=== PATIENT | female | born 1935 ===

== ENCOUNTER 2019-06-15 20:30 | Inpatient (IN) | payer MEDICARE, MEDICAID ==
[~2019-06-15] VITALS: Ht 167.6 cm; Wt 137.0 kg
[2019-06-15 11:50] VITALS: BP 165/100
[~2019-06-15 20:30] MED LIST: ASPI81TA47 PO; CELE-193 PO; CHOL100062 PO; DULR RC; FOLI-43 PO; FURO-149 PO; HYDR200T80 PO; MAGN800O PO; METH2.5T17 PO; MULT-785 PO; NORCO10T PO; OMEP40CA13 PO; ONDA4TAB9 SL; POTA20TA84 PO; PREG75CA30 PO; SENN187T PO; VITA400C21 PO; VITC500T PO
--- NOTE | 2019-06-15 20:46 | NUR ---
MD informed of orders, Dr Bethea on her way to see the patient.
--- NOTE | 2019-06-15 20:47 | NUR ---
Pt keeps her eyes closed and moans. She is very miserable. Usually she is very talkative.
[2019-06-15 20:57] LABS: BASOPHILS # (AUTO) 0.1 X10'3 (0-0.2); BASOPHILS % (AUTO) 0.4 % (0-1); EOSINOPHILS % (AUTO) 0.1 % (0-6); HEMATOCRIT 41.8 % (35.0-45.0); HEMOGLOBIN 13.2 g/dl (12.0-16.0); LYMPHOCYTES # (AUTO) 0.7 X10'3 (1.1-4.8); LYMPHOCYTES % (AUTO) 5.8 % (21-51); MEAN CORPUSCULAR HEMOGLOBIN 28.5 PG (27.0-31.0); MEAN CORPUSCULAR HGB CONC 31.6 g/dL (33.0-36.5); MEAN CORPUSCULAR VOLUME 90.2 FL (78-98); MEAN PLATELET VOLUME 9.2 FL (7.4-10.4); MONOCYTES # (AUTO) 0.7 X10'3 (0-0.9); MONOCYTES % (AUTO) 5.5 % (2-12); NEUTROPHILS # (AUTO) 10.4 X10'3 (1.8-7.7); NEUTROPHILS % (AUTO) 88.2 % (42-75); PLATELET COUNT 121 X10'3 (140-440); RED BLOOD COUNT 4.63 X10'6 (4.20-5.60); RED CELL DISTRIBUTION WIDTH 16.7 % (11.5-14.5); WHITE BLOOD COUNT 11.8 X10'3 (4.5-11.0)
[2019-06-15] MEDS ORDERED: temazepam 15mg capsule PO PRN (21:00)
[2019-06-15] MEDS ORDERED: normal saline 1000ML IV soln IVB ONE (21:05)
[2019-06-15 21:06] LABS: PARTIAL THROMBOPLASTIN TIME 37 SECONDS (22-32)
[2019-06-15] MEDS ORDERED: FOLI1TAB16 PO (21:06)
[2019-06-15] MEDS ORDERED: PREG150C PO (21:06)
[2019-06-15] MEDS ORDERED: ASCO100T9 PO (21:06)
[2019-06-15] MEDS ORDERED: APIX5TAB3 PO (21:06)
[2019-06-15] MEDS ORDERED: MAGN400T28 PO (21:06)
[2019-06-15] MEDS ORDERED: MULT1CAP44 PO (21:06)
[2019-06-15] MEDS ORDERED: SENN-162 PO (21:06)
[2019-06-15] MEDS ORDERED: CHOL10002 PO (21:06)
[2019-06-15] MEDS ORDERED: OSC500T PO (21:06)
[2019-06-15] MEDS ORDERED: HYDR-4353 PO ×2 (21:06)
[2019-06-15] MEDS ORDERED: POLY15DR56 OP (21:06)
[2019-06-15] MEDS ORDERED: A/C/1TAB3 PO (21:07)
[2019-06-15] MEDS ORDERED: NA P133E4 RC (21:07)
[2019-06-15] MEDS ORDERED: CETI-102 PO (21:07)
[2019-06-15] MEDS ORDERED: FLUT1AER IH (21:07)
[2019-06-15] MEDS ORDERED: DENO60DI SUBCUT (21:07)
[2019-06-15] MEDS ORDERED: POTA10TA19 PO (21:07)
[2019-06-15] MEDS ORDERED: oxygen INH (21:07)
[2019-06-15] MEDS ORDERED: CELE200C PO (21:07)
[2019-06-15] MEDS ORDERED: IPRA3AMP31 IH (21:07)
[2019-06-15] MEDS ORDERED: BISA10SU60 PR (21:07)
[2019-06-15] MEDS ORDERED: OFLO5DRO5 EACH EAR (21:07)
[2019-06-15] MEDS ORDERED: FURO80TA3 PO (21:07)
[2019-06-15] MEDS ORDERED: LEVA15HF4 INH (21:07)
[2019-06-15] MEDS ORDERED: OMEP40CA13 PO (21:07)
[2019-06-15] MEDS ORDERED: HYDR200T80 PO (21:07)
[2019-06-15] MEDS ORDERED: MAGN400O6 PO (21:07)
[2019-06-15 21:18] LABS: ALANINE AMINOTRANSFERASE 23 U/L (12-78); ALBUMIN 3.3 G/DL (3.4-5.0); ALBUMIN/GLOBULIN RATIO 0.7 (1.1-1.5); ALKALINE PHOSPHATASE 75 IU/L (46-116); ANION GAP 3 (8-16); ASPARTATE AMINO TRANSFERASE 21 U/L (10-37); BILIRUBIN,TOTAL 0.7 MG/DL (0.1-1.0); BLOOD UREA NITROGEN 34 MG/DL (7-18); BUN/CREATININE RATIO 26.8 (6.6-38.0); CALCIUM 9.1 MG/DL (8.5-10.1); CHLORIDE 100 MMOL/L (99-107); CREATININE 1.27 MG/DL (0.40-0.90); GLUCOSE 224 MG/DL (70-104); POTASSIUM 4.3 MMOL/L (3.5-5.1); SODIUM 143 MMOL/L (135-145); TOTAL CARBON DIOXIDE 39.7 MMOL/L (24-32); TOTAL PROTEIN 7.9 G/DL (6.4-8.2); eGFR 40 ML/MIN
--- NOTE | 2019-06-15 21:20 | NUR ---
pt to ct
[2019-06-15 21:21] LABS: CLARITY,URINE CLOUDY (Clear); COLOR,URINE YELLOW (Yellow); GLUCOSE, URINE NEGATIVE (Neg); KETONES,URINE 15 mg/dl (Neg); LEUKOCYTE ESTERASE ,URINE TRACE (Neg); NITRITES, URINE POSITIVE (Neg); OCCULT BLOOD,URINE SMALL (Neg); PH,URINE 6.5 (4.8-8.0); PROTEIN,URINE 100 mg/dl (Neg)
[2019-06-15 21:27] LABS: UA COLLECTION TYPE FOLEY CATH
[2019-06-15] MEDS ORDERED: ipratropium/albuterol 3ml nebule NEB ONE (21:35)
--- NOTE | 2019-06-15 21:39 | NUR ---
PT O2 <90%, PT PUT ON NON REBREATHER AT 15L PT SAT AT 97%
[2019-06-15] MEDS ORDERED: morphine 4 MG/ML inj SYRINge IV PRN ×2 (21:50)
[2019-06-15] MEDS ORDERED: morphine 4 MG/ML inj SYRINge IV ONE (21:50)
[2019-06-15] MEDS ORDERED: CefTRIAXone 2gm/D5W 50ml 50 ML IV ONE (21:50)
[2019-06-15] MEDS ORDERED: azithromycin/NS 500mg/250ml 250 ML IV ONE (21:50)
[2019-06-15 21:53] LABS: BACTERIA,URINE 3+ /HPF (Neg); MUCUS STRANDS NONE SEEN /LPF (Neg); SQUAMOUS EPITHELIAL CELL,UR MODERATE /LPF (FEW)
[2019-06-15] MEDS ORDERED: normal saline 1000ml 1,000 ML IV SCH (22:18)
[2019-06-15] MEDS ORDERED: HYDROcodone/acetaminophen 10/325mg tab PO PRN (22:20)
[2019-06-15] MEDS ORDERED: magnesium 2GM in 50ml NS 50 ML IV PRN (22:20)
[2019-06-15] MEDS ORDERED: magnesium Cl slow-release 64mg tablet PO PRN (22:20)
[2019-06-15] MEDS ORDERED: mag hydrox/Alum hydrox/simeth 30ml oral suspension PO PRN (22:20)
[2019-06-15] MEDS ORDERED: ondansetron/PF 4mg/2ml inj IV PRN (22:20)
[2019-06-15] MEDS ORDERED: potassium Cl 20 mEq SR tablet PO PRN ×2 (22:20)
[2019-06-15] MEDS ORDERED: acetaminophen 325mg tablet PO PRN (22:20)
[2019-06-15] MEDS ORDERED: potassium CL 10mEq/100ml bag 100 ML IV PRN (22:20)
[2019-06-15] MEDS ORDERED: HYDROmorphone 1 mg/ml syringe IV PRN (22:20)
[2019-06-15] MEDS ORDERED: HYDROcodone/acetaminophen 5mg/325mg tablet PO PRN (22:20)
[2019-06-15] MEDS ORDERED: magnesium 4gm in 100ml NS 100 ML IV PRN (22:20)
[2019-06-15] MEDS ORDERED: magnesium hydroxide 30ml (MOM) UD suspension PO PRN (22:20)
[2019-06-15 22:30] LABS: ABG BASE EXCESS 13.4 mmol/L (-2.0-3.0); ABG OXYGEN SATURATION 98.7 % (95-98); ABG PCO2 (T) 82.2 mmHg (35.0-45.0); ABG PH (T) 7.338 (7.350-7.450); ABG PO2 (T) 173.3 mmHg (83-108); ALLEN'S TEST Positive; FCOHb 1.5 % (0.5-1.5); FLOW 10 L/min; FMetHb 0.4 % (0.3-1.12); FO2Hb 96.8 % (94-100); PATIENT TEMPERATURE 37.1; RESPIRATORY RATE (OBSERVED) 30 b/min; TOTAL HEMOGLOBIN 13.7 G/dl (12.0-16.0)
[2019-06-15] MEDS ORDERED: ipratropium/albuterol 3ml nebule NEB PRN (22:35)
[2019-06-15] MEDS ORDERED: methylPREDNISolone sod succ 125mg/2ml vial IV ONE (22:35)
[2019-06-15 22:42] LABS: HEMOGLOBIN A1C 6.6 % (4.5-6.2)
[2019-06-15] MEDS ORDERED: furosemide 40mg/4ml inj IV SCH (22:50)
[2019-06-15 23:00] VITALS: BP 82/61
[2019-06-15 23:00] LABS: PHOSPHORUS 3.2 MG/DL (2.3-4.5)
--- NOTE | 2019-06-15 23:13 | NUR ---
sent to [facility] PAGER ID: [phone] MESSAGE: kaycee [phone] Sri Hollis BP is 77/65 82/61 please advise artemio [phone]
[2019-06-15 23:30] VITALS: BP 133/83
[2019-06-15] MEDS: ipratropium/albuterol 3ml nebule NEB SCH (23:47)
--- NOTE | 2019-06-15 23:50 | NUR ---
Patient arrived on unit at approximately 2300 placed on mobile, bipap, vital signs obtained. Patient vital signs are stable. Patient requires manual BP's.
[2019-06-16] VITALS (15 sets, daily range): BP systolic 63–182; BP diastolic 36–107
[2019-06-16] MEDS: furosemide 40mg/4ml inj IV SCH ×3 (00:07→20:17)
--- NOTE | 2019-06-16 01:27 | NUR ---
Patient is altered. Both sons came to visit patient. First son came to ER and up to unit (Jason) was here untill 12. Second son (Freddie) came to unit at 11:50 and spent 15 min with patient. Contact info: Jason (son): [phone] Freddie (son): [phone] Emiliana (daughter in law): [phone]
--- NOTE | 2019-06-16 01:27 | NUR ---
sent to [facility] PAGER ID: [phone] MESSAGE: [phone] Sri tucker Manual BP right 145/102 manual BP left 165/100 Susan [phone] (80 character message out of a maximum of 240)
--- NOTE | 2019-06-16 01:32 | NUR ---
When patient came to unit we took multiple automatic blood pressures. Right arm showed 77/65, Right lower arm showed 82/61. Dr Amin was paged, we took a manual BP and the right arm showed 142/101, left arm showed 165/100. Patient has been on the mobile for the night and her bp has been stable. Will continue to monitor.
--- NOTE | 2019-06-16 01:38 | NUR ---
sent to [facility] MESSAGE: [phone], Sri Henry: POLST states DNR w/ comfort focused tx, no artificial nutrition. We have her ordered as a LIMITED CODE STATUS would you like to change it? Thank you, [phone] Susan
[2019-06-16] MEDS: methylPREDNISolone sod succ 125mg/2ml vial IV SCH ×4 (02:09→20:17)
[2019-06-16] MEDS: HYDROmorphone 1 mg/ml syringe IV PRN (02:11)
[2019-06-16 02:41] LABS: ABG BASE EXCESS 10.4 mmol/L (-2.0-3.0); ABG HCO3 38.7 mmol/L (22.0-26.0); ABG PCO2 (T) 72.3 mmHg (35.0-45.0); ABG PH (T) 7.351 (7.350-7.450); ABG PO2 (T) 60.4 mmHg (83-108); ALLEN'S TEST Positive; FCOHb 1.2 % (0.5-1.5); FMetHb 0.2 % (0.3-1.12); FO2Hb 88.7 % (94-100); MINUTE VOLUME 10 L/min; PATIENT TEMPERATURE 37.9; RESPIRATORY RATE 20 b/min; RESPIRATORY RATE (OBSERVED) 28 b/min; TOTAL HEMOGLOBIN 13.9 G/dl (12.0-16.0)
[2019-06-16 03:03] LABS: EOSINOPHILS % (AUTO) 0 % (0-6); HEMOGLOBIN 13.2 g/dl (12.0-16.0); LYMPHOCYTES # (AUTO) 0.3 X10'3 (1.1-4.8)
[2019-06-16 03:06] LABS: BASOPHILS % (AUTO) 0.2 % (0-1); HEMATOCRIT 41.3 % (35.0-45.0); LYMPHOCYTES % (AUTO) 1.9 % (21-51); MEAN CORPUSCULAR HEMOGLOBIN 28.7 PG (27.0-31.0); MEAN CORPUSCULAR HGB CONC 31.9 g/dL (33.0-36.5); MONOCYTES % (AUTO) 6.7 % (2-12); NEUTROPHILS # (AUTO) 13.4 X10'3 (1.8-7.7); NEUTROPHILS % (AUTO) 91.2 % (42-75); RED BLOOD COUNT 4.59 X10'6 (4.20-5.60); RED CELL DISTRIBUTION WIDTH 16.6 % (11.5-14.5); WHITE BLOOD COUNT 14.7 X10'3 (4.5-11.0)
[2019-06-16 03:22] LABS: ALANINE AMINOTRANSFERASE 24 U/L (12-78); ALBUMIN/GLOBULIN RATIO 0.6 (1.1-1.5); ALKALINE PHOSPHATASE 69 IU/L (46-116); ANION GAP 5 (8-16); ASPARTATE AMINO TRANSFERASE 23 U/L (10-37); BILIRUBIN,TOTAL 0.8 MG/DL (0.1-1.0); BLOOD UREA NITROGEN 34 MG/DL (7-18); BUN/CREATININE RATIO 25.4 (6.6-38.0); CALCIUM 9.1 MG/DL (8.5-10.1); CHLORIDE 103 MMOL/L (99-107); CREATININE 1.34 MG/DL (0.40-0.90); GLUCOSE 196 MG/DL (70-104); POTASSIUM 3.8 MMOL/L (3.5-5.1); SODIUM 145 MMOL/L (135-145); TOTAL CARBON DIOXIDE 37.4 MMOL/L (24-32); TOTAL PROTEIN 7.7 G/DL (6.4-8.2); eGFR 38 ML/MIN
[2019-06-16 03:24] LABS: CHOL/HDL RATIO 2.3 (0.00-4.99); CHOLESTEROL 142 MG/DL (0-200); HDL CHOLESTEROL 63 MG/DL (35-60); LDL CHOLESTEROL 71 MG/DL (50-100); MAGNESIUM 1.9 MG/DL (1.5-2.4); PHOSPHORUS 2.3 MG/DL (2.3-4.5); TRIGLYCERIDES 70 MG/DL (20-135)
[2019-06-16 03:39] LABS: TOTAL CELLS COUNTED 100
[2019-06-16 03:41] LABS: ANISOCYTOSIS 1+; LARGE PLATELETS FEW; PLATELET ESTIMATE DECREASED; TOXIC VACUOLATION 1+
[2019-06-16 03:49] LABS: MEAN PLATELET VOLUME 9.2 FL (7.4-10.4); PLATELET COUNT 110 X10'3 (140-440)
--- NOTE | 2019-06-16 04:12 | NUR ---
Spoke with Dr. Amin about patients POLST status DNR w/ comfort care. He would like to leave her at limited code with no ventilation, no intubation, no chest compressions.
--- NOTE | 2019-06-16 04:55 | NUR ---
sent to [facility] MESSAGE: [id number] Sri Henry; JUST FYI WBC up to 14.7 from 11.8 trop up 0.04 to 0.07 renal function per labs worsened co2 improved from 82.2 to 72.3 Temp at 0300 100.2 pt less responsive with no eye opening now. thanks, Susan [phone]
--- NOTE | 2019-06-16 06:22 | NUR ---
Problems reprioritized. Patient report given, questions answered & plan of care reviewed with CHELSIE Parrish.
--- NOTE | 2019-06-16 06:30 | NUR ---
Patient in room PCU 3017. I have received report from Susan HOLGUIN and had the opportunity to ask questions and assume patient care. Patient on bi-pap and MD bedside. New orders: STAT ABG and rectal tylenol Q6H PRN Fever > 101.
[2019-06-16] MEDS ORDERED: acetaminophen 120MG suppository, rectal RC PRN (06:35)
[2019-06-16] MEDS ORDERED: vancomycin/NS 1 GM ADD-VANTAGE 250 ML X 1 DOSE IV ONE ×2 (06:40→08:30)
[2019-06-16] MEDS: ipratropium/albuterol 3ml nebule NEB SCH ×5 (06:42→23:11)
--- NOTE | 2019-06-16 06:55 | NUR ---
Patient in room PCU 3017. I have received report from Shivani HOLGUIN and had the opportunity to ask questions and assume patient care.
--- NOTE | 2019-06-16 07:00 | NUR ---
Patient report given, questions answered & plan of care reviewed with Gris HOLGUIN. Patient stable at transfer of care.
[2019-06-16 07:01] LABS: ABG BASE EXCESS 5.8 mmol/L (-2.0-3.0); ABG HCO3 33.6 mmol/L (22.0-26.0); ABG OXYGEN SATURATION 93.2 % (95-98); ABG PCO2 (T) 63.8 mmHg (35.0-45.0); ABG PO2 (T) 67.4 mmHg (83-108); ALLEN'S TEST Positive; FCOHb 1.1 % (0.5-1.5); FMetHb 0.1 % (0.3-1.12); FO2Hb 92.1 % (94-100); MINUTE VOLUME 16 L/min; RESPIRATORY RATE 20 b/min; RESPIRATORY RATE (OBSERVED) 32 b/min; TIDAL VOLUME 500 mL
--- NOTE | 2019-06-16 07:01 | NUR ---
Spoke with Jason (son) and informed him of his mothers condition per Dr. Amin. He understands and stated he will be in to visit his mother around 8 or 9. Spoke with Freddie (son) and informed him of his mothers condition per Dr. Amin. He stated he understands that was the end of the conversation.
[2019-06-16] MEDS: apixaban 5mg tablet PO SCH ×2 (08:00→20:00)
[2019-06-16] MEDS ORDERED: azithromycin/NS 500mg/250ml 250 ML IV SCH (08:00)
[2019-06-16] MEDS: K and/or MAG REPLACEMENT MC SCH (08:00)
[2019-06-16] MEDS ORDERED: furosemide 40mg/4ml inj IV SCH (08:00)
[2019-06-16] MEDS: pregabalin 75mg capsule PO SCH ×2 (08:00→20:00)
[2019-06-16] MEDS: hydroxychloroquine 200mg tablet PO SCH (08:00)
[2019-06-16] MEDS: CefTRIAXone/D5W-Rocephin 1gm 50 ML IV SCH (08:15)
--- NOTE | 2019-06-16 08:30 | NUR ---
Luisa hospitalist, "Gris [phone] Sri Hollis- PATIENT SICK, SOMETHING GOING ON" Received call back from Dr. Smith, made him aware something was brewing, we discussed her polst, going to clarify patients wishes with marco meade.
--- NOTE | 2019-06-16 08:50 | NUR ---
Called [facility] to confirm patient's code status, confirmed patient was DNR there. Called Jason (son) to clarify patient's wishes, clarified patient wishes to be DNR, discussed with MD today. Order to be changed from limited code to DNR and band to be put on. Addendum: 06/16/19 at 1236 by Gris Melgoza RN Also discussed with MD if he wanted us to order hyperglycemia management, stated no he doesn't want that now.
--- NOTE | 2019-06-16 12:34 | NUR ---
Paged hospitalist, "Gris [phone]- Rm. [phone] Roz Fierro, would you like gentle IV hydration ordered since she's not eating/drinking?"
--- NOTE | 2019-06-16 13:13 | NUR ---
Paged hospitalist, "Gris [phone]- Rm. [phone] B. Please call this nurse urgent but nonemergent." Wish to ask him about gentle IV hydration with patient being NPO.
--- NOTE | 2019-06-16 13:25 | NUR ---
Called rapid reponse at this time after noting an automatic bp of 63/47, placed head down, O2 on bipap sustaining in mid 90s, BP improved with lowering head. Dr. Smith arrived, agreed to lower Morphine to 1 mg, decided he did not want IVF's due to the CHF and wants to maintain a MAP of 65 and >
--- NOTE | 2019-06-16 14:17 | NUR ---
Page hospitalist "Gris [phone]- Rm. [phone] B please call urgent nonemergent" wish to ask hospitalist about pain medications.
[2019-06-16] MEDS: morphine 2 MG/ML inj. syringe IV PRN (14:43)
--- NOTE | 2019-06-16 15:53 | NUR ---
PAGED HOSPITALIST AGAIN "HUMA [phone]- PLEASE CALL THIS NURSE DERECK RE: [phone]" WAITING CARE ASSISTANT BACK, PATIENT FAMILY REQUESTING ATIVAN AND TYLENOL SUPPOSITORY FOR COMFORT.
[2019-06-16] MEDS ORDERED: acetaminophen 650mg rectal suppository RC PRN (16:00)
[2019-06-16] MEDS: LORazepam 2 mg/ml vial IV PRN ×2 (16:22→20:20)
--- NOTE | 2019-06-16 17:18 | NUR ---
Critical lab: Blood cultures x2 from IV start positive for gram + cocci in pairs at hour 19. Notified primary RNGris.
--- NOTE | 2019-06-16 17:48 | NUR ---
Paged hospitalist, "Gris [phone]- Rm. [phone] B Sri Henry- gram POSITIVE cocci in pairs- blood cx's @ 19 hrs. Also noted foul smelling urine upon emptying f/c bag."
[2019-06-16] MEDS: lactobacillus rhamnosus 10,000 MMU CELLS/CAPSULE PO SCH (20:00)
[2019-06-17] MEDS: methylPREDNISolone sod succ 125mg/2ml vial IV SCH ×4 (01:42→21:22)
[2019-06-17 03:00] VITALS: BP 138/42
[2019-06-17] MEDS: LORazepam 2 mg/ml vial IV PRN ×5 (03:18→19:50)
[2019-06-17] MEDS: morphine 2 MG/ML inj. syringe IV PRN ×4 (04:34→21:21)
[2019-06-17] MEDS: HYDROmorphone 1 mg/ml syringe IV PRN ×4 (05:26→23:52)
--- NOTE | 2019-06-17 06:00 | NUR ---
Patient in room PCU 3017. I have received report from Baldev HOLGUIN and had the opportunity to ask questions and assume patient care.
--- NOTE | 2019-06-17 06:13 | NUR ---
patient tolerated sips of water without any issues. she is more alert, and respond to verbal commands.
[2019-06-17 06:14] LABS: BASOPHILS % (AUTO) 0.1 % (0-1); EOSINOPHILS % (AUTO) 0 % (0-6); HEMATOCRIT 38.4 % (35.0-45.0); HEMOGLOBIN 12.5 g/dl (12.0-16.0); LYMPHOCYTES # (AUTO) 0.5 X10'3 (1.1-4.8); LYMPHOCYTES % (AUTO) 3.2 % (21-51); MEAN CORPUSCULAR HEMOGLOBIN 29.3 PG (27.0-31.0); MEAN CORPUSCULAR HGB CONC 32.6 g/dL (33.0-36.5); MEAN CORPUSCULAR VOLUME 89.9 FL (78-98); MEAN PLATELET VOLUME 9.7 FL (7.4-10.4); MONOCYTES # (AUTO) 0.9 X10'3 (0-0.9); MONOCYTES % (AUTO) 6.2 % (2-12); NEUTROPHILS # (AUTO) 13.5 X10'3 (1.8-7.7); NEUTROPHILS % (AUTO) 90.5 % (42-75); PLATELET COUNT 118 X10'3 (140-440); RED BLOOD COUNT 4.28 X10'6 (4.20-5.60); RED CELL DISTRIBUTION WIDTH 16.7 % (11.5-14.5); WHITE BLOOD COUNT 14.9 X10'3 (4.5-11.0)
[2019-06-17 06:24] LABS: ALANINE AMINOTRANSFERASE 20 U/L (12-78); ALBUMIN 2.7 G/DL (3.4-5.0); ALBUMIN/GLOBULIN RATIO 0.6 (1.1-1.5); ALKALINE PHOSPHATASE 63 IU/L (46-116); ANION GAP 7 (8-16); ASPARTATE AMINO TRANSFERASE 17 U/L (10-37); BILIRUBIN,TOTAL 0.4 MG/DL (0.1-1.0); BLOOD UREA NITROGEN 40 MG/DL (7-18); BUN/CREATININE RATIO 31.5 (6.6-38.0); CHLORIDE 106 MMOL/L (99-107); CREATININE 1.27 MG/DL (0.40-0.90); GLUCOSE 188 MG/DL (70-104); MAGNESIUM 2.3 MG/DL (1.5-2.4); PHOSPHORUS 2.6 MG/DL (2.3-4.5); POTASSIUM 3.9 MMOL/L (3.5-5.1); SODIUM 148 MMOL/L (135-145); TOTAL CARBON DIOXIDE 35.2 MMOL/L (24-32); TOTAL PROTEIN 7.5 G/DL (6.4-8.2); eGFR 40 ML/MIN
--- NOTE | 2019-06-17 06:33 | NUR ---
Gave report to Trenton-CHELSIE. All questions were answered.
--- NOTE | 2019-06-17 06:34 | NUR ---
Patient in room PCU 3017. I have received report from David and had the opportunity to ask questions and assume patient care.
[2019-06-17 07:00] VITALS: BP 163/101
[2019-06-17] MEDS: ipratropium/albuterol 3ml nebule NEB SCH ×5 (07:01→23:52)
[2019-06-17] MEDS: CefTRIAXone/D5W-Rocephin 1gm 50 ML IV SCH (07:13)
[2019-06-17] MEDS: apixaban 5mg tablet PO SCH ×2 (07:15→20:00)
[2019-06-17] MEDS: lactobacillus rhamnosus 10,000 MMU CELLS/CAPSULE PO SCH ×2 (07:15→20:00)
[2019-06-17] MEDS: pregabalin 75mg capsule PO SCH ×2 (07:15→20:00)
[2019-06-17] MEDS: hydroxychloroquine 200mg tablet PO SCH (07:15)
[2019-06-17] MEDS: furosemide 40mg/4ml inj IV SCH ×3 (07:18→21:22)
[2019-06-17] MEDS: K and/or MAG REPLACEMENT MC SCH (08:00)
[2019-06-17 10:50] LABS: ABG BASE EXCESS 11.1 mmol/L (-2.0-3.0); ABG HCO3 38.7 mmol/L (22.0-26.0); ABG OXYGEN SATURATION 92.1 % (95-98); ABG PCO2 (T) 64.6 mmHg (35.0-45.0); ABG PH (T) 7.395 (7.350-7.450); ABG PO2 (T) 63.6 mmHg (83-108); FMetHb 0.2 % (0.3-1.12); MINUTE VOLUME 8 L/min; RESPIRATORY RATE 20 b/min; RESPIRATORY RATE (OBSERVED) 24 b/min; TOTAL HEMOGLOBIN 13.5 G/dl (12.0-16.0)
[2019-06-17 11:00] VITALS: BP 119/47
[2019-06-17] MEDS: acetaminophen 650mg rectal suppository RC PRN ×3 (11:32→23:51)
--- NOTE | 2019-06-17 11:40 | NUR ---
PAGER ID: [phone] MESSAGE: RE: Sri Henry, Room: 301. FYI Pt has temp of 101.1. Tylenol suppository given. -[facility] #[phone] Dr. Smith paged concerning Pt's temp and administration of Tylenol Supp.
[2019-06-17 15:00] VITALS: BP 128/105
--- NOTE | 2019-06-17 15:09 | NUR ---
Page sent PAGER ID: [phone] MESSAGE: [id number] Sri Henry, temp of 101.2, Tylenol Suppository given at 1130.AMY Brarett RN [phone]
--- NOTE | 2019-06-17 17:31 | NUR ---
Page sent PAGER ID: [phone] MESSAGE: [id number] Sri Henry, Rectal temp of 102.4, gave another Tylenol suppository. AMY RAMIREZ
[2019-06-17 18:00] VITALS: BP 119/59
--- NOTE | 2019-06-17 18:00 | NUR ---
Problems reprioritized. Patient report given, questions answered & plan of care reviewed with Timi RN.
--- NOTE | 2019-06-17 18:22 | NUR ---
Problems reprioritized. Patient report given, questions answered & plan of care reviewed with Tato.
--- NOTE | 2019-06-17 18:34 | NUR ---
Patient in room PCU 3017. I have received report from Trenton HOLGUIN and had the opportunity to ask questions and assume patient care.
--- NOTE | 2019-06-17 18:36 | NUR ---
I have reviewed Radha HOLGUIN, orientee, charting and I agree with it.
[2019-06-17 22:00] VITALS: BP 153/81
[2019-06-18] VITALS (7 sets, daily range): BP systolic 117–145; BP diastolic 58–90
[2019-06-18] MEDS: methylPREDNISolone sod succ 125mg/2ml vial IV SCH (02:19)
[2019-06-18] MEDS: LORazepam 2 mg/ml vial IV PRN ×4 (03:19→21:49)
[2019-06-18 05:51] LABS: BASOPHILS % (AUTO) 0.1 % (0-1); EOSINOPHILS % (AUTO) 0 % (0-6); HEMATOCRIT 37.6 % (35.0-45.0); HEMOGLOBIN 12.2 g/dl (12.0-16.0); LYMPHOCYTES # (AUTO) 0.5 X10'3 (1.1-4.8); LYMPHOCYTES % (AUTO) 5.1 % (21-51); MEAN CORPUSCULAR HGB CONC 32.5 g/dL (33.0-36.5); MEAN CORPUSCULAR VOLUME 89.2 FL (78-98); MEAN PLATELET VOLUME 9.1 FL (7.4-10.4); MONOCYTES # (AUTO) 0.7 X10'3 (0-0.9); MONOCYTES % (AUTO) 6.6 % (2-12); NEUTROPHILS % (AUTO) 88.2 % (42-75); PLATELET COUNT 120 X10'3 (140-440); RED BLOOD COUNT 4.21 X10'6 (4.20-5.60); RED CELL DISTRIBUTION WIDTH 16.4 % (11.5-14.5); WHITE BLOOD COUNT 10.2 X10'3 (4.5-11.0)
[2019-06-18 06:11] LABS: ALANINE AMINOTRANSFERASE 21 U/L (12-78); ALBUMIN 2.4 G/DL (3.4-5.0); ALBUMIN/GLOBULIN RATIO 0.5 (1.1-1.5); ALKALINE PHOSPHATASE 53 IU/L (46-116); ANION GAP 5 (8-16); ASPARTATE AMINO TRANSFERASE 20 U/L (10-37); BILIRUBIN,TOTAL 0.3 MG/DL (0.1-1.0); BLOOD UREA NITROGEN 47 MG/DL (7-18); BUN/CREATININE RATIO 36.4 (6.6-38.0); CALCIUM 9.2 MG/DL (8.5-10.1); CHLORIDE 108 MMOL/L (99-107); CREATININE 1.29 MG/DL (0.40-0.90); GLUCOSE 204 MG/DL (70-104); MAGNESIUM 2.3 MG/DL (1.5-2.4); PHOSPHORUS 3.5 MG/DL (2.3-4.5); SODIUM 152 MMOL/L (135-145); TOTAL CARBON DIOXIDE 39.5 MMOL/L (24-32); TOTAL PROTEIN 7.1 G/DL (6.4-8.2); eGFR 39 ML/MIN
--- NOTE | 2019-06-18 06:27 | NUR ---
Problems reprioritized. Patient report given, questions answered & plan of care reviewed with Eleni Meadows RN.
--- NOTE | 2019-06-18 06:28 | NUR ---
Patient in room PCU 3017. I have received report from CHELSIE Capellan and had the opportunity to ask questions and assume patient care. Patient is currently resting in bed, appears in some distress, acknowledges pain, will treat mikey, on continuous bipap, received critical value K 3.0, will replace per protocol. Will continue to monitor.
[2019-06-18] MEDS: morphine 2 MG/ML inj. syringe IV PRN ×2 (06:55→20:42)
[2019-06-18] MEDS: potassium CL 10mEq/100ml bag 100 ML IV PRN ×5 (06:56→16:30)
[2019-06-18] MEDS ORDERED: dextrose 5%-water 1,000 ML IV SCH (07:00)
[2019-06-18] MEDS: ipratropium/albuterol 3ml nebule NEB SCH ×5 (07:00→23:00)
--- NOTE | 2019-06-18 07:15 | NUR ---
promotional table spacer PAGER ID: [phone] MESSAGE: CHELSIE Knowles, ext [phone], [phone], Carl, patient has hx DM, AM lab glucose was 204, A1C is 6.6, order DM protocol? Also, do you still want D5 @50?
[2019-06-18] MEDS: lactobacillus rhamnosus 10,000 MMU CELLS/CAPSULE PO SCH ×2 (08:00→20:00)
[2019-06-18] MEDS: pregabalin 75mg capsule PO SCH ×2 (08:00→20:00)
[2019-06-18] MEDS: CefTRIAXone/D5W-Rocephin 1gm 50 ML IV SCH (08:27)
[2019-06-18] MEDS: methylPREDNISolone sod succ/PF 40mg inj. IV SCH ×2 (08:28→16:30)
[2019-06-18] MEDS: furosemide 20 MG/2 ML vial IV SCH ×2 (08:28→20:42)
[2019-06-18] MEDS: K and/or MAG REPLACEMENT MC SCH (08:36)
[2019-06-18] MEDS ORDERED: cefepime 1GM in D5W 50mL 50 ML IV SCH (09:25)
[2019-06-18] MEDS ORDERED: glucagon, human recombinant 1mg kit SUBCUT PRN (09:50)
[2019-06-18] MEDS ORDERED: dextrose 50%-water 50ml dispensing syringe IV PRN ×2 (09:50)
[2019-06-18] MEDS ORDERED: dextrose ORAL solution 15 GM/59 ML bottle PO PRN ×2 (09:50)
[2019-06-18] MEDS ORDERED: insulin Lispro (HumaLOG) vial - multi-dose SQ SCH (09:50)
[2019-06-18] MEDS ORDERED: insulin regular, human vial - multi-dose SQ SCH (09:50)
[2019-06-18] MEDS ORDERED: cefepime 1GM/NS ADD-VANTAGE 50 ML IV SCH (09:55)
[2019-06-18] MEDS ORDERED: heparin, porcine 5000 units/ml vial SQ ONE (09:55)
[2019-06-18] MEDS: HYDROmorphone 1 mg/ml syringe IV PRN ×2 (10:40→15:24)
[2019-06-18] MEDS: hydroxychloroquine 200mg tablet PO SCH (11:05)
--- NOTE | 2019-06-18 11:35 | NUR ---
Student documentation: I have reviewed all interventions, assessments performed and documented by Tim Jon. Student Medication Administration: For this medication-pass time frame, all medication were reviewed, dispensed, administered and documented per hospital policy by Tim Jon.
--- NOTE | 2019-06-18 12:21 | NUR ---
TF Consult: Pt admit w/ ALOC AOx0 on 2149 from [facility] per MD note. Per MD COPD/CHF exacerbations, UTI w/ sepsis. Na 152 now receiving DEX. NPO and alternative nutrition per SP recs. Pending corpak placement verification w/ NGTF to start today per MD. Recs below for pt needs given DX. LBM 06/16. Will monitor for TF tolerance. Rec: 1. NGTF via corpak per MD using Vital AF at 80ml/hr goal; to provide 1920ml fluid, 1555ml free water, 2304 kcals, and 144g protein 2. Water flush 200ml Q4 3. prealbumin Q /, daily wts 4. routine bowel care as medically indicated 5. monitor for TF Tolerance 6. Advance diet per SP to carb controlled/heart healthy 7. Only wean corpak feeds IF advanced to PO diet AND tolerating 65% avg PO meals Addendum: 06/18/19 at [address] Amended: Links added.
[2019-06-18 14:52] LABS: PREALBUMIN 10.8 MG/DL (19-36)
--- NOTE | 2019-06-18 15:00 | NUR ---
NAYELY states corpak placement good for tube feeding, spoke with Dr. Smith, DC D5@50ml/hr and start tube feed via corpak
[2019-06-18] MEDS: cefepime 1GM/NS ADD-VANTAGE 100 ML IV SCH (15:08)
--- NOTE | 2019-06-18 18:23 | NUR ---
Problems reprioritized. Patient report given, questions answered & plan of care reviewed with Timi, RN. Patient currently resting in bed, VSS at shift change.
--- NOTE | 2019-06-18 18:29 | NUR ---
Patient in room PCU 3017. I have received report from Eleni Meadows RN and had the opportunity to ask questions and assume patient care.
[2019-06-18] MEDS: heparin, porcine 5000 units/ml vial SQ SCH (20:42)
[2019-06-18] MEDS: insulin glargine (Lantus) pen - multi-dose SQ SCH (21:00)
[2019-06-18] MEDS ORDERED: VANCOMYCIN LEVEL IV ONE (22:30)
[2019-06-18] MEDS ORDERED: magnesium 4gm in 100ml NS 100 ML IV PRN (23:55)
[2019-06-18] MEDS ORDERED: magnesium Cl slow-release 64mg tablet PO PRN (23:55)
[2019-06-18] MEDS ORDERED: potassium Cl 20 mEq SR tablet PO PRN ×2 (23:55)
[2019-06-18] MEDS ORDERED: magnesium 2GM in 50ml NS 50 ML IV PRN (23:55)
[2019-06-19] MEDS: methylPREDNISolone sod succ/PF 40mg inj. IV SCH ×4 (00:15→23:52)
[2019-06-19] MEDS: HYDROmorphone 1 mg/ml syringe IV PRN ×4 (00:16→14:33)
[2019-06-19] MEDS: cefepime 1GM/NS ADD-VANTAGE 100 ML IV SCH ×4 (00:17→23:51)
[2019-06-19] MEDS: potassium CL 10mEq/100ml bag 100 ML IV PRN ×3 (00:19→03:59)
[2019-06-19 02:00] VITALS: BP 102/57
[2019-06-19] MEDS: morphine 2 MG/ML inj. syringe IV PRN ×2 (02:39→20:27)
[2019-06-19] MEDS: LORazepam 2 mg/ml vial IV PRN ×3 (03:43→20:27)
[2019-06-19 06:10] VITALS: BP 111/67
--- NOTE | 2019-06-19 06:30 | NUR ---
I have received patient report from [facility] RN
--- NOTE | 2019-06-19 06:30 | NUR ---
I have received patient report from [facility] RN
--- NOTE | 2019-06-19 06:38 | NUR ---
Problems reprioritized. Patient report given, questions answered & plan of care reviewed with Glory Lewis RN.
[2019-06-19] MEDS: ipratropium/albuterol 3ml nebule NEB SCH ×5 (07:54→23:00)
[2019-06-19] MEDS: K and/or MAG REPLACEMENT MC SCH (08:00)
[2019-06-19] MEDS: lactobacillus rhamnosus 10,000 MMU CELLS/CAPSULE PO SCH ×2 (08:26→20:32)
[2019-06-19] MEDS: hydroxychloroquine 200mg tablet PO SCH (08:26)
[2019-06-19] MEDS: furosemide 20 MG/2 ML vial IV SCH ×2 (08:27→20:31)
[2019-06-19] MEDS: pregabalin 75mg capsule PO SCH ×2 (08:27→20:32)
[2019-06-19] MEDS: heparin, porcine 5000 units/ml vial SQ SCH ×2 (08:28→20:31)
[2019-06-19] MEDS: insulin regular, human vial - multi-dose SQ SCH ×3 (09:08→21:02)
[2019-06-19] MEDS ORDERED: VANCOMYCIN LEVEL IV ONE (10:30)
[2019-06-19 11:00] VITALS: BP 163/50
[2019-06-19 11:01] LABS: BASOPHILS % (AUTO) 0.1 % (0-1); EOSINOPHILS % (AUTO) 0 % (0-6); HEMOGLOBIN 12.9 g/dl (12.0-16.0); LYMPHOCYTES # (AUTO) 0.3 X10'3 (1.1-4.8); LYMPHOCYTES % (AUTO) 3.4 % (21-51); MEAN CORPUSCULAR HEMOGLOBIN 28.9 PG (27.0-31.0); MEAN CORPUSCULAR HGB CONC 32.2 g/dL (33.0-36.5); MEAN CORPUSCULAR VOLUME 89.7 FL (78-98); MEAN PLATELET VOLUME 9.2 FL (7.4-10.4); MONOCYTES # (AUTO) 0.7 X10'3 (0-0.9); MONOCYTES % (AUTO) 8.4 % (2-12); NEUTROPHILS # (AUTO) 7.4 X10'3 (1.8-7.7); NEUTROPHILS % (AUTO) 88.1 % (42-75); PLATELET COUNT 132 X10'3 (140-440); RED BLOOD COUNT 4.46 X10'6 (4.20-5.60); RED CELL DISTRIBUTION WIDTH 16.6 % (11.5-14.5); WHITE BLOOD COUNT 8.4 X10'3 (4.5-11.0)
[2019-06-19 11:21] LABS: ALANINE AMINOTRANSFERASE 32 U/L (12-78); ALBUMIN 2.5 G/DL (3.4-5.0); ALBUMIN/GLOBULIN RATIO 0.5 (1.1-1.5); ALKALINE PHOSPHATASE 73 IU/L (46-116); ANION GAP 5 (8-16); ASPARTATE AMINO TRANSFERASE 21 U/L (10-37); BILIRUBIN,TOTAL 0.3 MG/DL (0.1-1.0); BLOOD UREA NITROGEN 58 MG/DL (7-18); BUN/CREATININE RATIO 44.6 (6.6-38.0); CALCIUM 9.2 MG/DL (8.5-10.1); CHLORIDE 105 MMOL/L (99-107); GLUCOSE 290 MG/DL (70-104); MAGNESIUM 1.9 MG/DL (1.5-2.4); POTASSIUM 3.6 MMOL/L (3.5-5.1); SODIUM 150 MMOL/L (135-145); TOTAL CARBON DIOXIDE 39.7 MMOL/L (24-32); TOTAL PROTEIN 7.5 G/DL (6.4-8.2); eGFR 39 ML/MIN
[2019-06-19 15:00] VITALS: BP 112/51
--- NOTE | 2019-06-19 18:30 | NUR ---
Patient in room PCU 3017. I have received report from Glory HOLGUIN and had the opportunity to ask questions and assume patient care.
--- NOTE | 2019-06-19 18:31 | NUR ---
Patient report given to Yamileth HOLGUIN
[2019-06-19 19:00] VITALS: BP 126/65
[2019-06-19] MEDS: insulin glargine (Lantus) pen - multi-dose SQ SCH (21:00)
[2019-06-19 23:00] VITALS: BP 138/69
[2019-06-20] MEDS: LORazepam 2 mg/ml vial IV PRN ×5 (00:42→22:54)
[2019-06-20] MEDS: morphine 2 MG/ML inj. syringe IV PRN ×6 (00:54→22:55)
[2019-06-20 02:00] VITALS: BP 129/73
[2019-06-20] MEDS: acetaminophen 325mg tablet PO PRN ×2 (02:35→09:29)
[2019-06-20] MEDS: insulin regular, human vial - multi-dose SQ SCH ×2 (02:45→09:25)
[2019-06-20 05:40] LABS: BASOPHILS % (AUTO) 0 % (0-1); EOSINOPHILS % (AUTO) 0 % (0-6); HEMATOCRIT 40.1 % (35.0-45.0); HEMOGLOBIN 12.9 g/dl (12.0-16.0); LYMPHOCYTES # (AUTO) 0.3 X10'3 (1.1-4.8); LYMPHOCYTES % (AUTO) 5.3 % (21-51); MEAN CORPUSCULAR HGB CONC 32.1 g/dL (33.0-36.5); MEAN CORPUSCULAR VOLUME 90.5 FL (78-98); MEAN PLATELET VOLUME 9.3 FL (7.4-10.4); MONOCYTES # (AUTO) 0.6 X10'3 (0-0.9); MONOCYTES % (AUTO) 9.1 % (2-12); NEUTROPHILS # (AUTO) 5.7 X10'3 (1.8-7.7); NEUTROPHILS % (AUTO) 85.6 % (42-75); PLATELET COUNT 126 X10'3 (140-440); RED BLOOD COUNT 4.43 X10'6 (4.20-5.60); RED CELL DISTRIBUTION WIDTH 16.8 % (11.5-14.5); WHITE BLOOD COUNT 6.6 X10'3 (4.5-11.0)
[2019-06-20 06:00] VITALS: BP 132/62
--- NOTE | 2019-06-20 06:30 | NUR ---
Problems reprioritized. Patient report given, questions answered & plan of care reviewed with Dorene HOLGUIN.
--- NOTE | 2019-06-20 06:40 | NUR ---
Patient in room PCU 3017. I have received report from Sana and had the opportunity to ask questions and assume patient care.
[2019-06-20] MEDS: ipratropium/albuterol 3ml nebule NEB SCH ×3 (06:45→14:20)
[2019-06-20] MEDS: pregabalin 75mg capsule PO SCH (08:00)
[2019-06-20] MEDS: K and/or MAG REPLACEMENT MC SCH (08:00)
[2019-06-20] MEDS: furosemide 20 MG/2 ML vial IV SCH (09:19)
[2019-06-20] MEDS: lactobacillus rhamnosus 10,000 MMU CELLS/CAPSULE PO SCH (09:20)
[2019-06-20] MEDS: methylPREDNISolone sod succ/PF 40mg inj. IV SCH (09:20)
[2019-06-20] MEDS: cefepime 1GM/NS ADD-VANTAGE 100 ML IV SCH (09:20)
[2019-06-20] MEDS: heparin, porcine 5000 units/ml vial SQ SCH (09:21)
[2019-06-20] MEDS: hydroxychloroquine 200mg tablet PO SCH (09:28)
[2019-06-20 10:00] VITALS: BP 123/70
[2019-06-20 11:12] LABS: BASOPHILS % (AUTO) 0.1 % (0-1); EOSINOPHILS % (AUTO) 0 % (0-6); HEMOGLOBIN 13.5 g/dl (12.0-16.0); LYMPHOCYTES # (AUTO) 0.4 X10'3 (1.1-4.8); LYMPHOCYTES % (AUTO) 6.1 % (21-51); MEAN CORPUSCULAR HEMOGLOBIN 28.7 PG (27.0-31.0); MEAN CORPUSCULAR VOLUME 89.6 FL (78-98); MEAN PLATELET VOLUME 9.4 FL (7.4-10.4); MONOCYTES # (AUTO) 0.7 X10'3 (0-0.9); MONOCYTES % (AUTO) 9.9 % (2-12); NEUTROPHILS # (AUTO) 6.1 X10'3 (1.8-7.7); NEUTROPHILS % (AUTO) 83.9 % (42-75); PLATELET COUNT 133 X10'3 (140-440); RED BLOOD COUNT 4.69 X10'6 (4.20-5.60); RED CELL DISTRIBUTION WIDTH 16.6 % (11.5-14.5); WHITE BLOOD COUNT 7.3 X10'3 (4.5-11.0)
--- NOTE | 2019-06-20 11:26 | NUR ---
PAGER ID: [phone] MESSAGE: Ghada Smith, sharonda Ms. Henry in 4017B, axillary temp 102.3, tylenol was given @ 0955, providing ice packs, thank you Dorene
[2019-06-20 11:29] LABS: ALANINE AMINOTRANSFERASE 34 U/L (12-78); ALBUMIN 2.3 G/DL (3.4-5.0); ALBUMIN/GLOBULIN RATIO 0.5 (1.1-1.5); ALKALINE PHOSPHATASE 73 IU/L (46-116); ANION GAP 1 (8-16); ASPARTATE AMINO TRANSFERASE 21 U/L (10-37); BILIRUBIN,TOTAL 0.3 MG/DL (0.1-1.0); BLOOD UREA NITROGEN 70 MG/DL (7-18); CALCIUM 9.4 MG/DL (8.5-10.1); CHLORIDE 108 MMOL/L (99-107); CREATININE 1.32 MG/DL (0.40-0.90); GLUCOSE 263 MG/DL (70-104); MAGNESIUM 2.1 MG/DL (1.5-2.4); PHOSPHORUS 2.1 MG/DL (2.3-4.5); POTASSIUM 4.1 MMOL/L (3.5-5.1); SODIUM 153 MMOL/L (135-145); TOTAL PROTEIN 7.4 G/DL (6.4-8.2); eGFR 38 ML/MIN
[2019-06-20 11:34] LABS: TOTAL CARBON DIOXIDE 43.9 MMOL/L (24-32)
--- NOTE | 2019-06-20 11:36 | NUR ---
PAGER ID: [phone] MESSAGE: Ghada Smith, RE Ms. Henry in 4257B, critical lab CO2 is 43.9, thank you Dorene
--- NOTE | 2019-06-20 15:14 | NUR ---
PAGER ID: [phone] MESSAGE: [phone] TRACIE ALL THE FAMILY IS HERE AND WANT TO TALK AND FINALIZE COMFORT CARE. SOME QUESTIONS. TERRI RAMIREZ [phone] Addendum: 06/20/19 at 1514 by Terri Roque RN Amended: Links added.
[2019-06-20] MEDS ORDERED: morphine 4 MG/ML inj SYRINge IV PRN (15:40)
--- NOTE | 2019-06-20 15:50 | NUR ---
Morphine and Ativan provided for patient comfort. BiPAP and tube feeding discontinued per pt's family request.
--- NOTE | 2019-06-20 18:08 | NUR ---
Problems reprioritized. Patient report given, questions answered & plan of care reviewed with Sana.
--- NOTE | 2019-06-20 18:15 | NUR ---
Patient in room PCU 3017. I have received report from Dorene HOLGUIN and had the opportunity to ask questions and assume patient care. Patient is comfortable, family is in room at her bedside.
--- NOTE | 2019-06-20 18:33 | NUR ---
Paged Dr. Smith PAGER ID: [phone] MESSAGE: Sana RAMIREZ #[phone]. Sri Henry #[id number]. Pt. is moaning again. Morphine doesn't seem to work as well as Ativan. Wondering if we can increase frequency of Ativan to Q2h along with the morphine, or increase dose (getting 0.5mg now). Addendum: 06/20/19 at 1834 by Sana Mckeon RN Increase dose of IV Ativan to 1mg Q2h
--- NOTE | 2019-06-20 22:12 | NUR ---
Family does not want anymore vital signs to be taken on patient. Addendum: 06/21/19 at 0404 by Sana Mckeon RN They don't want chavarria care performed either.
[2019-06-21] MEDS: morphine 2 MG/ML inj. syringe IV PRN ×3 (03:38→08:35)
[2019-06-21] MEDS: LORazepam 2 mg/ml vial IV PRN ×3 (03:39→08:34)
--- NOTE | 2019-06-21 06:14 | NUR ---
Problems reprioritized. Patient report given, questions answered & plan of care reviewed with Rula HOLGUIN and Teresa HOLGUIN.
--- NOTE | 2019-06-21 06:23 | NUR ---
Patient in room PCU 3017. I have received report from Sana HOLGUIN and had the opportunity to ask questions and assume patient care.
--- NOTE | 2019-06-21 09:40 | NUR ---
RN IS TO DOCUMENT YES TO ALL APPLICABLE AREAS Pronouncement of :942 1. Time Physician Notified:[id number] 2. Date of :06/21/2019 3. Time of : 939 4. DNR/Withdraw life support documented:Yes 5. Monitor strip has been placed on chart:Yes 6. Assessment process is of one-minute duration and includes following criteria:Y a) Patient is unresponsive to all stimuli: Y b) Pupils fixed and non-reactive:Y c) Auscultation of precordium reveals absence of heart tones:Y d) Auscultation of lungs reveals absence of breath sounds:Y e) Absence of blood pressure / all vital signs:Y f) QRS complexes are not present on monitor / EKG strip:Y g) Pacer spikes without capture:n/a 4. Comments: Family notified and mortuary notified.
--- NOTE | 2019-06-21 09:56 | NUR ---
[place]rient[place] documentation: I have reviewed and agree with all interventions, assessments performed and documented by Teresa HOLGUIN. [place] Medication Administration: For this medication-pass time frame, all medication were reviewed, dispensed, administered and documented per hospital policy by Teresa HOLGUIN.
--- NOTE | 2019-06-21 12:15 | NUR ---
Clarence received patient, and has all necessary paperwork. Family has been notified. ABIGAIL & Eliza discontinued.
== END 2019-06-21 12:15 | disposition expired | DRG 871 ==
LOC: ER 20:31 → EDBEDREQSVC 22:38 → PCU 3S 23:42 → CMPBEDREQ 23:44
PROVIDERS: ADMIT Family Medicine; ATTEND Family Medicine
PROC: 5A09457 Assistance with Respiratory Ventilation, 24-96 Consecutive Hours, Continuous Positive Airway Pressure (ICD-10-PCS; principal; 2019-06-15)
PROC: 5A09357 Assistance with Respiratory Ventilation, Less than 24 Consecutive Hours, Continuous Positive Airway Pressure (ICD-10-PCS; 2019-06-18)
PROC: 5A09357 Assistance with Respiratory Ventilation, Less than 24 Consecutive Hours, Continuous Positive Airway Pressure (ICD-10-PCS; 2019-06-20)
DX: A41.9 Sepsis, unspecified organism (principal); I50.33 Acute on chronic diastolic (congestive) heart failure; J18.9 Pneumonia, unspecified organism; J96.01 Acute respiratory failure with hypoxia; G93.41 Metabolic encephalopathy; J44.0 Chronic obstructive pulmonary disease with (acute) lower respiratory infection; N39.0 Urinary tract infection, site not specified; E87.2 Acidosis; J44.1 Chronic obstructive pulmonary disease with (acute) exacerbation; E87.0 Hyperosmolality and hypernatremia; E87.6 Hypokalemia; B96.20 Unspecified Escherichia coli [E. coli] as the cause of diseases classified elsewhere; I48.91 Unspecified atrial fibrillation; R13.10 Dysphagia, unspecified; Z66 Do not resuscitate; K21.9 Gastro-esophageal reflux disease without esophagitis; M81.0 Age-related osteoporosis without current pathological fracture; Z51.5 Encounter for palliative care; F32.9 Major depressive disorder, single episode, unspecified; F41.9 Anxiety disorder, unspecified; G89.29 Other chronic pain; M19.90 Unspecified osteoarthritis, unspecified site; M54.9 Dorsalgia, unspecified; Z87.891 Personal history of nicotine dependence
CPT/HCPCS: 36415; 36600; 70450; 70486; 71045; 74018; 80053; 80061; 80202; 81001; 82803; 82948; 83036; 83605; 83735; 83880; 84100; 84132; 84134; 84145; 84443; 84484; 85018; 85025; 85610; 85730; 87040; 87077; 87081; 87088; 87186; 92508; 92616; 93005; 93308; 94640; 94660; 94760; 96365; 96367; 99285; G0378; J0456; J0692; J0696; J1170; J1644; J1815; J1940; J2060; J2270; J2920; J2930; J3370; J3480; J7070